=== PATIENT | male | born 1965 | race Caucasian/White ===

== ENCOUNTER 2023-10-10 06:38 | Day surgery (SDC) | payer OTHER, SELFPAY ==
[2023-10-08 15:37] VITALS: BMI 27.0
--- NOTE | 2023-10-09 14:02 | HO.ANESPROP2 ---
Documented by User: Susanne Barber NP 10/09/23 14:02 HPI - Anesthesia Eval Consult details Narrative: 58yo M for Colonoscopy COUNTS INCLUDE 234 BEDS AT THE [facility] Past Medical History Medical History Erectile dysfunction Surgical History Surgical History H/O colonoscopy Hx of inguinal hernia repair Hx of vasectomy Hx of Achilles tendon repair Social History Social History Patient Tobacco Use Status: Never used Tobacco Use of substances other than those prescribed or required for medical reasons: No Are you DNR?: No Advance Directives: No Advance Directives Information Provided: Yes Meds Allergies Allergy/AdvReac Type Severity Reaction Status Date / Time No Known Allergies Allergy Verified 10/10/23 07:02 Home Medications Medication Instructions Recorded Confirmed Last Taken Type Vitamin C 1,000 mg PO DAILY 10/08/23 10/10/23 Unknown History multivitamin 1 tab PO DAILY 10/08/23 10/10/23 Unknown History saw palmetto 400 mg PO DAILY 10/08/23 10/10/23 Unknown History sildenafil 100 mg tablet 25 mg PO DAILY PRN Erectile 10/08/23 10/10/23 Unknown History Dysfunction turmeric 1,100 mg PO DAILY 10/08/23 10/10/23 Unknown History Exam Height,Weight and Vital Signs: Height 6 ft Weight 90.265 kg Assessment and Plan Assessment Anesthesia Assessment: Chart Reviewed Documented by User: Eileen Valenzuela MD 10/10/23 07:52 COUNTS INCLUDE 234 BEDS AT THE [facility] Past Medical History Medical History Erectile dysfunction Family History Family history of problems with anesthesia: No Surgical History Surgical History H/O colonoscopy Hx of inguinal hernia repair Hx of vasectomy Hx of Achilles tendon repair History of Problems with Anesthesia: No Social History Social History Patient Tobacco Use Status: Never used Tobacco Use of substances other than those prescribed or required for medical reasons: No Are you DNR?: No Advance Directives: No Advance Directives Information Provided: Yes Meds Allergies Allergy/AdvReac Type Severity Reaction Status Date / Time No Known Allergies Allergy Verified 10/10/23 07:02 Home Medications Medication Instructions Recorded Confirmed Last Taken Type Vitamin C 1,000 mg PO DAILY 10/08/23 10/10/23 Unknown History multivitamin 1 tab PO DAILY 10/08/23 10/10/23 Unknown History saw palmetto 400 mg PO DAILY 10/08/23 10/10/23 Unknown History sildenafil 100 mg tablet 25 mg PO DAILY PRN Erectile 10/08/23 10/10/23 Unknown History Dysfunction turmeric 1,100 mg PO DAILY 10/08/23 10/10/23 Unknown History Exam Height,Weight and Vital Signs: Height 6 ft Weight 90.265 kg Vital Signs Temp Pulse Resp BP Pulse Ox O2 Del Method 10/10/23 07:13 97.6 F 54 15 126/73 98 Room Air Airway Mallampati Class: I TM Dist: >3cm Neck ROM: Full Loose/Missing/Broken Teeth: No (Denies broken, loose, missing teeth) Heart: RRR Lungs: CTAB Assessment and Plan Assessment Anesthesia Assessment: Anesthesia Plan Discussed Final Anesthetic Review Family History of Problems with Anesthesia: No History of Problems with Anesthesia: No NPO: Yes ASA Class: II Final Preanesthetic Review: No Changes in Pt Med Stat, Meds/Allgs Chart Reviewed, Consent Obtained/Reviewed and Anes Risks/Benef Reviewed Patient Risk: Low Procedure Risk: Low Assessment/Block/Sedation in SS: Assess/Block/Sedation-SS Anesthetic Plan Anesthetic Plan: MAC: Disposition: Standard PACU
[2023-10-10 07:04] VITALS: BMI 26.3
[2023-10-10 07:13] VITALS: BP 126/73; PULSE 54; RESP 15; TEMP 36.4; O2SAT 98
[2023-10-10] MEDS: Lactated Ringers 1,000 ML 100 ML IVCONT (07:16)
[2023-10-10 08:36] VITALS: BP 111/63; PULSE 49; RESP 12; TEMP 36.5; O2SAT 97
--- NOTE | 2023-10-10 08:36 | PM.OP ---
Brief Operative Note Date of Service: 10/10/23 Pre-op diagnosis: Screening Post-op diagnosis: other (Polyps) Procedure: Colonoscopy to the cecum with bx/removal of polyps Surgeon: Gary Robledo MD Anesthesia: MAC Was an Independent Living Instructor used for this Procedure?: No Estimated blood loss (mL): 2.0 Pathology: other (A. Transverse colon polyp B. Rectal polyp) Condition: stable Disposition: PACU
[2023-10-10 08:47] VITALS: BP 101/65; PULSE 54; O2SAT 99
[2023-10-10 08:56] VITALS: BP 118/77; PULSE 52; RESP 16; TEMP 36.5; O2SAT 100
--- NOTE | 2023-10-10 08:58 | OP_ITS ---
DATE OF SERVICE: 10/10/2023 SURGEON: Gary Robledo MD INDICATIONS: The patient presents for followup of colorectal cancer screening and family history of colorectal polyps and colon cancer. Full consent has been obtained from him for this, including risks of bleeding and perforation. PREOPERATIVE DIAGNOSIS: Colorectal cancer screening and family history of colorectal cancer and polyps. POSTOPERATIVE DIAGNOSIS: Colorectal cancer screening and family history of colorectal cancer and polyps, colon polyps, diverticulosis, and internal hemorrhoids. PROCEDURE PERFORMED: Colonoscopy to the cecum with biopsy and removal of polyps. ESTIMATED BLOOD LOSS: COMPLICATIONS: ANESTHESIA: Medication Used: Monitored anesthesia care. ASSISTANTS: SPECIMENS: DESCRIPTION OF PROCEDURE: The patient was placed in the left lateral decubitus position. The digital rectal exam revealed no abnormalities. The Olympus video pediatric colonoscope was entered into the rectum and advanced easily into the cecum. Once in the cecum, I did identify normal-appearing cecal pouch with appendiceal orifice and a normal-appearing ileocecal valve. The entire cecum and ileocecal valve appeared normal. There was transillumination of light deep in the right lower quadrant. The scope was then slowly withdrawn, assessing all mucosal surfaces carefully. Preparation was excellent. In the transverse colon was a flat, approximately 4 mm polyp, which was biopsied and completely removed with cold biopsy forceps. In the rectum was a flat, 3 mm polyp, which was biopsied and completely removed with cold biopsy forceps. I did not visualize any other polyps, colitis, nor angiodysplasia. There was a mild amount of sigmoid diverticulosis. In the rectum, scope was retroflexed, visualizing internal hemorrhoids, but no other pathology. The rectal mucosa appeared normal. Scope was straightened and withdrawn from the patient. He tolerated the procedure well and was returned to the recovery area in stable condition. IMPRESSION: 1. Small colon polyps. 2. Diverticulosis. 3. Internal hemorrhoids. PLAN: The results of the pathology will be checked. I would recommend a repeat colonoscopy in 5 years for further surveillance. He will, otherwise, see me on a p.r.n. basis. MD FLORENCE Leo/NANCY / [id number] [email or web address]
== END 2023-10-10 09:35 | disposition home or self-care (01) ==
PROVIDERS: PCP Internal Medicine; Visit Provider Internal Medicine
PROC: 0DJD8ZZ Inspection of Lower Intestinal Tract, Via Natural or Artificial Opening Endoscopic (ICD-10-PCS; CPT 45378; principal; 2023-10-10 07:30)
DX: Z12.11 Encounter for screening for malignant neoplasm of colon (principal); Z80.0 Family history of malignant neoplasm of digestive organs; Z83.719 Family history of colon polyps, unspecified; D12.3 Benign neoplasm of transverse colon; D12.8 Benign neoplasm of rectum; K57.30 Diverticulosis of large intestine without perforation or abscess without bleeding; K64.8 Other hemorrhoids; Z79.899 Other long term (current) drug therapy; Z98.52 Vasectomy status
CPT/HCPCS: 45380; 88305; J2704